=== PATIENT | female | born 1935 | race Caucasian/White ===

== ENCOUNTER 2017-10-22 12:23 | Inpatient (IN) | payer OTHER, MEDICARE ==
[~2017-10-22] VITALS: Ht 162.6 cm; Wt 53.7 kg
[2017-10-22 12:30] VITALS: Ht 162.6 cm; Wt 53.7 kg
[2017-10-22 13:00] LABS: BASOPHIL % 0.2 % (0-2); PLATELET COUNT 183 x10^3mcL (130-400); RED CELL DISTRIBUTION WIDTH 14.1 % (11.5-14.5)
[2017-10-22 13:07] LABS: UA SPECIFIC GRAVITY 1.025 (1.005-1.035); microscopic required? YES; urine erythrocyte TRACE (NEGATIVE)
[2017-10-22 13:17] LABS: CALCIUM 8.9 mg/dL (8.5-10.1); CHLORIDE SERUM 105 mmol/L (98-107); CREATININE SERUM 0.7 mg/dL (0.6-1.0); GLUCOSE SERUM 95 mg/dL (74-106); POTASSIUM SERUM 3.7 mmol/L (3.5-5.1); SODIUM SERUM 138 mmol/L (136-145)
[2017-10-22 13:26] LABS: ALBUMIN 3.9 g/dL (3.4-5.0); ALKALINE PHOSPHATASE 69 U/L (46-116); ALT/SGPT 31 U/L (14-59); AMYLASE 54 U/L (25-115); AST/SGOT 26 U/L (15-37); BILIRUBIN TOTAL 0.67 mg/dL (0.20-1.00); CHOLESTEROL 191 mg/dL (<200); LIPASE 160 IU/L (73-393); T4(THYROXINE) 10.3 ug/dL (4.7-13.3); TOTAL PROTEIN, SERUM 6.9 g/dL (6.4-8.2)
[2017-10-22 13:53] LABS: HDL CHOLESTEROL 96 mg/dL (40-60)
[2017-10-22] MEDS ORDERED: SULFAMETHOXAZOL1 TA3 PO (14:23)
[2017-10-22 14:58] LABS: MAGNESIUM 2.1 mg/dL (1.8-2.4); PHOSPHOROUS 3.7 mg/dL (2.5-4.9)
[2017-10-22 15:26] VITALS: BP 132/62
[2017-10-22 16:12] LABS: RED BLOOD CELLS 3.44 M/mm3 (4.10-5.10)
[2017-10-22 16:29] LABS: IRON 29 ug/dL (50-170); TOTAL IRON BINDING CAPACITY 216 ug/dL (250-450)
[2017-10-22 20:52] VITALS: BP 123/60
[2017-10-23 06:17] LABS: CALCIUM 8.7 mg/dL (8.5-10.1); CARBON DIOXIDE 26.3 mmol/L (21-32); CHLORIDE SERUM 106 mmol/L (98-107); CREATININE SERUM 0.7 mg/dL (0.6-1.0); GLUCOSE SERUM 103 mg/dL (74-106); PHOSPHOROUS 2.9 mg/dL (2.5-4.9); POTASSIUM SERUM 3.6 mmol/L (3.5-5.1); SODIUM SERUM 143 mmol/L (136-145)
[2017-10-23 08:37] LABS: BASOPHIL % 0.3 % (0-2); PLATELET COUNT 178 x10^3mcL (130-400)
[2017-10-23 09:45] VITALS: BP 112/57
[2017-10-23 17:45] VITALS: BP 123/68
[2017-10-23 19:30] VITALS: BP 126/60
[2017-10-24 05:41] VITALS: BP 118/65
[2017-10-24 06:30] LABS: CALCIUM 8.3 mg/dL (8.5-10.1); CARBON DIOXIDE 23.8 mmol/L (21-32); CHLORIDE SERUM 107 mmol/L (98-107); CREATININE SERUM 0.6 mg/dL (0.6-1.0); GLUCOSE SERUM 72 mg/dL (74-106); MAGNESIUM 1.9 mg/dL (1.8-2.4); PHOSPHOROUS 3.2 mg/dL (2.5-4.9); POTASSIUM SERUM 3.6 mmol/L (3.5-5.1); SODIUM SERUM 143 mmol/L (136-145)
[2017-10-24 06:50] LABS: BASOPHIL % 0.5 % (0-2); PLATELET COUNT 177 x10^3mcL (130-400); RED CELL DISTRIBUTION WIDTH 13.8 % (11.5-14.5)
[2017-10-24 08:40] VITALS: BP 127/57
[2017-10-24 12:52] VITALS: BP 118/70
[2017-10-24 17:10] VITALS: BP 123/62
[2017-10-24 21:11] VITALS: BP 101/63
[2017-10-25 05:50] VITALS: BP 97/56
[2017-10-25 09:32] VITALS: BP 105/60
[2017-10-25] MEDS ORDERED: AZU500 PO (11:07)
[2017-10-25] MEDS ORDERED: FOL1 PO (11:08)
[2017-10-25] MEDS ORDERED: QUETIAPINE FUMA25 M1 PO (12:06)
[2017-10-25] MEDS ORDERED: ACETAMINOPHEN-H1 TA1 PO (12:07)
[2017-10-25] MEDS ORDERED: COL100 PO (12:07)
[2017-10-25 12:08] VITALS: BP 105/60
== END 2017-10-25 15:23 | DRG 74 ==
LOC: ED 12:23 → DU 14:18 → MU 14:18 → DU 14:49 → MU 10-23 10:23
PROVIDERS: Emergency Medicine; Family Medicine
PROC: 2W3BX1Z Immobilization of Left Upper Arm using Splint (ICD-10-PCS; principal; 2017-10-22)
PROC: 0HQ0XZZ Repair Scalp Skin, External Approach (ICD-10-PCS; 2017-10-22)
DX: G90.8 Other disorders of autonomic nervous system (principal); S42.212A Unspecified displaced fracture of surgical neck of left humerus, initial encounter for closed fracture; I45.2 Bifascicular block; N39.0 Urinary tract infection, site not specified; S01.01XA Laceration without foreign body of scalp, initial encounter; Z66 Do not resuscitate; F32.9 Major depressive disorder, single episode, unspecified; G47.00 Insomnia, unspecified; D64.9 Anemia, unspecified; K58.1 Irritable bowel syndrome with constipation; F43.21 Adjustment disorder with depressed mood; W10.0XXA Fall (on)(from) escalator, initial encounter; Y93.01 Activity, walking, marching and hiking; Y92.89 Other specified places as the place of occurrence of the external cause; Z88.2 Allergy status to sulfonamides
CPT/HCPCS: 83880; 90715; 92610; 94150; 97110-GP; 97530-GP; J0696; J1885; J1940; J3010; J3490; J7030; J7042; Q0092

== ENCOUNTER 2017-11-06 17:58 | Inpatient (IN) | payer OTHER, MEDICARE ==
[~2017-11-06] VITALS: Ht 162.6 cm; Wt 54.0 kg
[~2017-11-06 17:58] MED LIST: ACETAMINOPHEN-H1 TA1 PO; AZU500 PO; COL100 PO; FOL1 PO; QUETIAPINE FUMA25 M1 PO; SULFAMETHOXAZOL1 TA3 PO
[2017-11-06 18:21] VITALS: BP 135/67
[2017-11-06] MEDS ORDERED: SULFAZINE500 M1 PO (18:56)
[2017-11-06] MEDS ORDERED: MOM PO (18:56)
[2017-11-06] MEDS ORDERED: PHARMASSURE FO0.4 MG PO (18:57)
[2017-11-06] MEDS ORDERED: COLACE100 MG PO (18:57)
[2017-11-06] MEDS ORDERED: NORCO1 TA2 PO (18:57)
[2017-11-06] MEDS ORDERED: APAP500 MG PO (18:58)
[2017-11-06] MEDS ORDERED: FOL1 PO (19:00)
[2017-11-06 19:33] LABS: BASOPHIL % 0.3 % (0-2); PLATELET COUNT 221 x10^3mcL (130-400); RED CELL DISTRIBUTION WIDTH 13.1 % (11.5-14.5)
[2017-11-06 19:44] LABS: CALCIUM 8.2 mg/dL (8.5-10.1); CARBON DIOXIDE 25.8 mmol/L (21-32); CHLORIDE SERUM 106 mmol/L (98-107); CHOLESTEROL 145 mg/dL (<200); CREATININE SERUM 0.6 mg/dL (0.6-1.0); GLUCOSE SERUM 105 mg/dL (74-106); MAGNESIUM 1.8 mg/dL (1.8-2.4); POTASSIUM SERUM 3.5 mmol/L (3.5-5.1); SODIUM SERUM 139 mmol/L (136-145); TRIGLYCERIDES 32 mg/dL (<150)
[2017-11-06 19:48] LABS: CHOLESTEROL/HDL RATIO 2.3; HDL CHOLESTEROL 64 mg/dL (40-60)
[2017-11-06 19:58] LABS: T3 TOTAL 0.67 ng/mL
[2017-11-06 20:19] LABS: FREE T4 1.3 ng/dL (0.76-1.46); FREE THYROXINE INDEX 2.9 ug/dL (1.4-4.5); T4(THYROXINE) 7.7 ug/dL (4.7-13.3)
[2017-11-06 23:11] LABS: UA SPECIFIC GRAVITY 1.015 (1.005-1.035); microscopic required? YES; urine erythrocyte 1+ (NEGATIVE)
[2017-11-07 05:39] VITALS: BP 113/67
[2017-11-07 05:56] LABS: PLATELET COUNT 220 x10^3mcL (130-400); RED CELL DISTRIBUTION WIDTH 13.3 % (11.5-14.5)
[2017-11-07 06:33] LABS: CALCIUM 8.2 mg/dL (8.5-10.1); CARBON DIOXIDE 23.7 mmol/L (21-32); CHLORIDE SERUM 107 mmol/L (98-107); CREATININE SERUM 0.5 mg/dL (0.6-1.0); GLUCOSE SERUM 96 mg/dL (74-106); MAGNESIUM 1.9 mg/dL (1.8-2.4); POTASSIUM SERUM 3.4 mmol/L (3.5-5.1); SODIUM SERUM 142 mmol/L (136-145)
[2017-11-07 06:35] LABS: BASOPHIL % 0 % (0-2)
[2017-11-07 09:08] VITALS: BP 109/57
[2017-11-07 13:32] VITALS: BP 119/62
[2017-11-08 07:11] LABS: BASOPHIL % 0.1 % (0-2); PLATELET COUNT 213 x10^3mcL (130-400)
[2017-11-08 07:36] LABS: CALCIUM 7.7 mg/dL (8.5-10.1); CARBON DIOXIDE 22.9 mmol/L (21-32); CHLORIDE SERUM 108 mmol/L (98-107); CREATININE SERUM 0.6 mg/dL (0.6-1.0); GLUCOSE SERUM 95 mg/dL (74-106); MAGNESIUM 1.8 mg/dL (1.8-2.4); PHOSPHOROUS 3.4 mg/dL (2.5-4.9); SODIUM SERUM 142 mmol/L (136-145)
[2017-11-08 09:28] VITALS: BP 109/63
[2017-11-08 18:04] VITALS: BP 129/59
[2017-11-08 20:48] VITALS: BP 101/61
[2017-11-09 05:44] VITALS: BP 103/60
[2017-11-09 06:59] LABS: CARBON DIOXIDE 26.1 mmol/L (21-32); CHLORIDE SERUM 112 mmol/L (98-107); CREATININE SERUM 0.6 mg/dL (0.6-1.0); GLUCOSE SERUM 95 mg/dL (74-106); PHOSPHOROUS 2.8 mg/dL (2.5-4.9); POTASSIUM SERUM 3.5 mmol/L (3.5-5.1); SODIUM SERUM 147 mmol/L (136-145)
[2017-11-09 07:07] LABS: BASOPHIL % 0.2 % (0-2); PLATELET COUNT 209 x10^3mcL (130-400); RED CELL DISTRIBUTION WIDTH 13.7 % (11.5-14.5)
[2017-11-09 08:40] VITALS: BP 104/58
[2017-11-09 12:56] VITALS: BP 123/67
[2017-11-09 17:50] VITALS: BP 124/62
[2017-11-09 20:49] VITALS: BP 96/60
[2017-11-10 05:52] VITALS: BP 109/52
[2017-11-10 07:19] LABS: BASOPHIL % 0.3 % (0-2); PLATELET COUNT 211 x10^3mcL (130-400); RED CELL DISTRIBUTION WIDTH 13.7 % (11.5-14.5)
[2017-11-10 07:26] LABS: CALCIUM 7.8 mg/dL (8.5-10.1); CARBON DIOXIDE 24.4 mmol/L (21-32); CHLORIDE SERUM 113 mmol/L (98-107); CREATININE SERUM 0.5 mg/dL (0.6-1.0); GLUCOSE SERUM 90 mg/dL (74-106); MAGNESIUM 2.1 mg/dL (1.8-2.4); PHOSPHOROUS 2.4 mg/dL (2.5-4.9); POTASSIUM SERUM 3.2 mmol/L (3.5-5.1); SODIUM SERUM 148 mmol/L (136-145)
[2017-11-10 10:01] VITALS: BP 106/57
[2017-11-10] MEDS ORDERED: LAC PO (10:38)
[2017-11-10] MEDS ORDERED: HEP5I SC (10:38)
[2017-11-10] MEDS ORDERED: LEVAQUIN750 MG PO (10:47)
[2017-11-10 11:42] VITALS: BP 106/57
== END 2017-11-10 15:00 | DRG 469 ==
LOC: MU 17:58 → DU 17:58 → MU 11-08 07:40
PROVIDERS: Family Medicine; Neuromusculoskeletal Medicine, Sports Medicine; Student in an Organized Health Care Education/Training Program
PROC: 0SRR01A Replacement of Right Hip Joint, Femoral Surface with Metal Synthetic Substitute, Uncemented, Open Approach (ICD-10-PCS; principal; 2017-11-07 12:00)
DX: S72.011A Unspecified intracapsular fracture of right femur, initial encounter for closed fracture (principal); N17.0 Acute kidney failure with tubular necrosis; S42.291A Other displaced fracture of upper end of right humerus, initial encounter for closed fracture; N39.0 Urinary tract infection, site not specified; E87.0 Hyperosmolality and hypernatremia; D64.9 Anemia, unspecified; E83.51 Hypocalcemia; I34.0 Nonrheumatic mitral (valve) insufficiency; I36.1 Nonrheumatic tricuspid (valve) insufficiency; E83.39 Other disorders of phosphorus metabolism; E87.6 Hypokalemia; M47.892 Other spondylosis, cervical region; R91.1 Solitary pulmonary nodule; W17.89XA Other fall from one level to another, initial encounter; Y93.89 Activity, other specified; Y92.122 Bedroom in nursing home as the place of occurrence of the external cause; F03.90 Unspecified dementia, unspecified severity, without behavioral disturbance, psychotic disturbance, mood disturbance, and anxiety; Z66 Do not resuscitate; Z68.20 Body mass index [BMI] 20.0-20.9, adult
CPT/HCPCS: 76770; 83880; 84439; 97110-GP; 97530-GP; C1776; J0690; J0696; J1644; J1885; J1940; J2704; J3010; J3480; J7030; J7120; Q0092

== ENCOUNTER 2018-01-08 16:57 | Emergency (ER) | payer OTHER, MEDICARE ==
[~2018-01-08] VITALS: Ht 154.9 cm; Wt 49.9 kg
[~2018-01-08 16:57] MED LIST changes: +APAP500 MG PO; +COLACE100 MG PO; +HEP5I SC; +LAC PO; +LEVAQUIN750 MG PO; +MOM PO; +NORCO1 TA2 PO; +PHARMASSURE FO0.4 MG PO; +SULFAZINE500 M1 PO
[2018-01-08 16:58] VITALS: Ht 154.9 cm; Wt 49.9 kg
== END 2018-01-08 19:00 | disposition expired ==
LOC: ED 16:57
DX: I21.9 Acute myocardial infarction, unspecified (principal)